=== PATIENT | male | born 1965 | race African-American/Black ===

== ENCOUNTER 2017-12-10 11:50 | Inpatient (IN) | payer OTHER ==
[2017-12-10 13:36] VITALS: BMI 31.4
--- NOTE | 2017-12-10 14:55 | HP ---
CIWA Score - CIWA Score Headache: 2-Mild Admission ROS BHS - HPI Chief Complaint: i need help to stop drinking alcohol,cocaine,marijuana Allergies/Adverse Reactions: Allergies Allergy/AdvReac Type Severity Reaction Status Date / Time Fish Containing Products Allergy Severe Itching Verified 12/10/17 14:45 History of Present Illness: this 52 years old black male with alcohol,cocaine,marijuana dependence,seeking help to stop,ambulation with walker, last treatment 2015 [facility] sine 1996 htn arthritis left knee callus both feet insomnia longest period of sobriety 5 years Exam Limitations: No Limitations - Ebola screening Have you traveled outside of the country in the last 21 days: No Have you had contact with anyone from an Ebola affected area: No Have you been sick,other than usual withdrawal symptoms: No - Review of Systems Constitutional: Weakness, Unintentional Wgt. Loss, Unexplained wgt Loss EENT: reports: Nose Congestion Respiratory: reports: No Symptoms reported Cardiac: reports: No Symptoms Reported GI: reports: No Symptoms Reported : reports: No Symptoms Reported Musculoskeletal: reports: Back Pain Integumentary: reports: Dryness Neuro: reports: No Symptoms reported Endocrine: reports: No Symptoms Reported Hematology: reports: No Symptoms Reported, Other (hiv) Psychiatric: reports: No Sypmtoms Reported, Judgement Intact, Mood/Affect Appropiate, Orientated x3 (insomnia) Patient History - Patient Medical History Hx Anemia: No Hx Asthma: No Hx Chronic Obstructive Pulmonary Disease (COPD): No Hx Cancer: No Hx Cardiac Disorders: No Hx Congestive Heart Failure: No Hx Hypertension: Yes (non ompliance ) Hx Hypercholesterolemia: No Hx Pacemaker: No HX Cerebrovascular Accident: No Hx Seizures: No Hx Dementia: No Hx Diabetes: No Hx Gastrointestinal Disorders: No Hx Liver Disease: No Hx Genitourinary Disorders: No Hx Sexually Transmitted Disorders: No Hx Renal Disease (ESRD): No Hx Thyroid Disease: No Hx Human Immunodeficiency Virus (HIV): Yes (since 1996) Hx Hepatitis C: No Hx Depression: No Hx Suicide Attempt: No Hx Bipolar Disorder: No Hx Schizophrenia: No Other Medical History: insomnia,no suicidal,no homicidal,ambulation with walker, arthritis of lt kn - Patient Surgical History Past Surgical History: No - PPD History Documented Results: Negative w/o proof Implanted On Prior [facility] Admission?: No PPD to be Administered?: Yes - Smoking Cessation Smoking history: Never smoked - Substance & Tx. History Hx Alcohol Use: Yes Hx Substance Use: Yes Substance Use Type: Alcohol, Cocaine, Marijuana Hx Substance Use Treatment: Yes ([facility] in 2016) - Substances Abused Alcohol Route: Oral Frequency: 1-2 times per week Amount used: 1 pint wine Age of first use: 13 Date of Last Use: 12/08/17 Cocaine Route: Smoking Frequency: Daily Amount used: $30 Age of first use: 13 Date of Last Use: 12/08/17 Marijuana/Hashish Route: Smoking Frequency: Daily Amount used: $10 Age of first use: 13 Date of Last Use: 12/08/17 Family Disease History - Family Disease History Family History: Denies Admission Physical Exam [facility] - Vital Signs Vital Signs: Vital Signs - 24 hr 12/10/17 13:35 Temperature 98.9 F Pulse Rate 76 Respiratory 18 Rate Blood Pressure 154/91 - Physical General Appearance: Yes: Within Normal Limits HEENTM: Yes: Within Normal Limits, Normal ENT Inspection, Pharynx Normal Respiratory: Yes: Lungs Clear, Normal Breath Sounds, No Respiratory Distress Neck: Yes: Within Normal Limits Breast: Yes: Within Normal Limits Cardiology: Yes: Within Normal Limits, Regular Rhythm, Regular Rate, S1, S2 Abdominal: Yes: Within Normal Limits, Normal Bowel Sounds, Non Tender, Flat, Soft Genitourinary: Yes: Within Normal Limits Back: Yes: Within Normal Limits Musculoskeletal: Yes: Muscle Pain, Other (arthritis left knee and both feet) Extremities: Yes: Other (arhtrittis left knee,both feet ambulation with walker) Neurological: Yes: family engagement specialist II-XII NML intact, Fully Oriented, Alert, Motor Strength 5/5 Integumentary: Yes: Within Normal Limits Lymphatic: Yes: Within Normal Limits - Diagnostic (1) Alcohol dependence Current Visit: Yes Status: Acute (2) Cocaine dependence Current Visit: Yes Status: Acute (3) Cannabis dependence Current Visit: Yes Status: Acute (4) HIV (human immunodeficiency virus infection) Current Visit: Yes Status: Acute (5) Walker as ambulation aid Current Visit: Yes Status: Acute (6) Weight loss Current Visit: Yes Status: Acute (7) Arthritis Current Visit: Yes Status: Acute (8) Insomnia Current Visit: Yes Status: Acute (9) Hypertension Current Visit: Yes Status: Acute Cleared for Admission S - Detox or Rehab Claeared for Rehab Admission: Yes [facility] Breath Alcohol Content Breath Alcohol Content: 0 Urine Drug Screen - Results Drug Screen Negative: No Urine Drug Screen Results: NELSON-Cocaine
[2017-12-10] MEDS ORDERED: MAG HYDROX/AL HYDROX/SIMETH 30 ML UNIT-DOSE CUP PO PRN (15:15)
[2017-12-10] MEDS ORDERED: LOPERAMIDE HCL 2 MG CAPSULE PO PRN (15:15)
[2017-12-10] MEDS ORDERED: MAGNESIUM HYDROX 2400MG/30ML ORAL SUSPENSION 30 ML CUP PO PRN (15:15)
[2017-12-10] MEDS ORDERED: MENTHOL/PHENOL 1 EACH UD MM PRN (15:15)
[2017-12-10] MEDS ORDERED: ACETAMINOPHEN 325 MG TABLET (FP) PO PRN (15:15)
[2017-12-10] MEDS ORDERED: P-EPHED 60MG/TRIPROLIDI 2.5MG TABLET PO PRN (15:15)
[2017-12-10] MEDS ORDERED: guaiFENesin/D-METHORPHAN HB 10 ML UNIT-DOSE CUPS PO PRN (15:15)
[2017-12-10] MEDS ORDERED: MAGNESIUM CITRATE 300 ML BOTTLE PO PRN (15:15)
[2017-12-10 21:32] LABS: URINE APPEARANCE TURBID; URINE BILIRUBIN NEGATIVE (NEGATIVE); URINE BLOOD NEGATIVE (NEGATIVE); URINE COLOR AMBER; URINE GLUCOSE (UA) NEGATIVE (NEGATIVE); URINE KETONE NEGATIVE (NEGATIVE); URINE LEUK ESTERASE NEGATIVE (NEGATIVE); URINE NITRITE NEGATIVE (NEGATIVE); URINE PROTEIN NEGATIVE (NEGATIVE); URINE UROBILINOGEN NEGATIVE mg/dL (0.2-1.0)
[2017-12-10] MEDS: hydrOXYzine PAMOATE 50 MG CAPSULE (FP) PO PRN (21:43)
[2017-12-10] MEDS: THIAMINE HCL 100 MG TABLET (FP) PO SCH (21:43)
[2017-12-11] MEDS: DARUNAVIR ETHANOLATE 800 MG TAB PO SCH (07:25)
[2017-12-11] MEDS: RITONAVIR 100 MG TABLET PO SCH (07:26)
[2017-12-11] MEDS: EMTRICITABINE 200MG/TENOFOVIR 300MG PO SCH (07:26)
[2017-12-11] MEDS ORDERED: EMTRICITABINE 200MG/TENOFOVIR 300MG PO SCH (10:00)
[2017-12-11 10:04] LABS: HEMOGLOBIN 13.5 GM/dL (11.7-16.9); MCH 30.1 pg (25.7-33.7); MEAN CELL VOLUME 91.1 fl (80-96); MEAN PLT VOLUME 9.4 fl (7.5-11.1); PLATELET COUNT 194 K/MM3 (134-434); RDW 14.1 % (11.9-15.9); WHITE BLOOD COUNT 5.5 K/mm3 (4.0-10.0)
[2017-12-11 10:11] LABS: ALBUMIN 3.6 g/dl (3.4-5.0); ANION GAP 7 (8-16); BLOOD UREA NITROGEN 14 mg/dL (7-18); CALCIUM 8.6 mg/dL (8.5-10.1); CHLORIDE 107 mmol/L (98-107); CO2 25 mmol/L (21-32); GLUCOSE,RANDOM 94 mg/dL (74-106); POTASSIUM 3.8 mmol/L (3.5-5.1); SGOT/AST 18 U/L (15-37); SGPT/ALT 25 U/L (12-78); SODIUM 139 mmol/L (136-145)
[2017-12-11 10:14] LABS: ALK PHOS 90 U/L (45-117); BILIRUBIN,TOTAL 0.4 mg/dL (0.2-1.0); CREATININE 0.8 mg/dL (0.7-1.3); TOT PROT 7.6 g/dl (6.4-8.2)
--- NOTE | 2017-12-11 10:29 | EKG ---
Test Reason : Blood Pressure : / mmHG Vent. Rate : 079 BPM Atrial Rate : 079 BPM P-R Int : 128 ms QRS Dur : 082 ms QT Int : 358 ms P-R-T Axes : 066 058 073 degrees QTc Int : 410 ms NORMAL SINUS RHYTHM WITH SINUS ARRHYTHMIA NORMAL ECG NO PREVIOUS ECGS AVAILABLE Confirmed by EMANUEL WEBB MD ([id number]) on 12/11/2017 10:29:36 AM Referred By: Confirmed By:EMANUEL WEBB MD
[2017-12-11] MEDS: PRENATAL VITAMINS W/ FOLIC ACID TABLET (FP) PO SCH (10:50)
--- NOTE | 2017-12-11 11:37 | HP ---
Psychiatrist Admission - Data Date of interview: 12/11/17 Admission source: [facility] Identifying data: This is the first 5n inpatient rehabilitation admission for this 52 year old single AA male unemployed and on PA, residing in the [facility]. Medical History: HIV, HTN, Arthritis to Lt. Knee and Callus to both feet, Psychiatric History: Patient reports one psychiatric hospitalization in 2015 to [facility] for 8 days, reports he walked in himself, was depressed and unable to sleep, states was discharged with Trazodone and Seroquel , he continued his treatment at [facility] in [facility] [place] for 3-4 months and then stopped, he currently c/o insomnia and requested to restart Seroquel. Physical/Sexual Abuse/Trauma History: Denies history of abuse. Vital Signs: Vital Signs - 24 hr 12/10/17 12/10/17 12/11/17 13:35 17:30 01:12 Temperature 98.9 F 98.4 F Pulse Rate 76 78 Respiratory 18 18 18 Rate Blood Pressure 154/91 130/84 12/11/17 06:56 Temperature 98.6 F Pulse Rate 73 Respiratory 18 Rate Blood Pressure 142/95 Allergies/Adverse Reactions: Allergies Allergy/AdvReac Type Severity Reaction Status Date / Time Fish Containing Products Allergy Severe Itching Verified 12/10/17 14:45 Date of last physical exam: 12/11/17 Concur with the findings of this exam: Yes - Substance Abuse/Tx History Hx Alcohol Use: Yes (beer daily 2-3 cans a day) Hx Substance Use: Yes Substance Use Type: Cocaine ($40 daily ) Hx Substance Use Treatment: Yes ([facility], [facility], [facility]) Mental Status Exam - Mental Status Exam Alert and Oriented to: Time, Place, Person Cognitive Function: Good Patient Appearance: Well Groomed Mood: Sad Affect: Appropriate, Mood Congruent Patient Behavior: Appropriate, Cooperative Speech Pattern: Clear, Appropriate Voice Loudness: Normal Thought Process: Intact, Goal Oriented Thought Disorder: Not Present Hallucinations: Denies Suicidal Ideation: Denies Homicidal Ideation: Denies Insight/Judgement: Fair Sleep: Poorly, Difficulty falling asleep Appetite: Fair Muscle strength/Tone: Normal Gait/Station: Normal Psychiatric Findings - Problem List ([place] 1, 2,3) (1) Alcohol-induced sleep disorder Current Visit: Yes Status: Acute (2) Alcohol dependence Current Visit: Yes Status: Acute (3) Cocaine dependence Current Visit: Yes Status: Acute - Initial Treatment Plan Initial Treatment Plan: will restart Trazodone 50 mg po hs, will monitor progress.
[2017-12-11] MEDS: THIAMINE HCL 100 MG TABLET (FP) PO SCH (21:53)
[2017-12-11] MEDS: hydrOXYzine PAMOATE 50 MG CAPSULE (FP) PO PRN (21:54)
[2017-12-12] MEDS: IBUPROFEN 400 MG TABLET (FP) PO PRN ×2 (06:41→21:49)
[2017-12-12] MEDS: EMTRICITABINE 200MG/TENOFOVIR 300MG PO SCH (07:33)
[2017-12-12] MEDS: RITONAVIR 100 MG TABLET PO SCH (07:33)
[2017-12-12] MEDS: DARUNAVIR ETHANOLATE 800 MG TAB PO SCH (07:33)
[2017-12-12] MEDS: PRENATAL VITAMINS W/ FOLIC ACID TABLET (FP) PO SCH (10:46)
[2017-12-12] MEDS: THIAMINE HCL 100 MG TABLET (FP) PO SCH (21:48)
[2017-12-12] MEDS: hydrOXYzine PAMOATE 50 MG CAPSULE (FP) PO PRN (21:49)
[2017-12-13] MEDS: IBUPROFEN 400 MG TABLET (FP) PO PRN (06:54)
[2017-12-13] MEDS: EMTRICITABINE 200MG/TENOFOVIR 300MG PO SCH (07:04)
[2017-12-13] MEDS: RITONAVIR 100 MG TABLET PO SCH (07:04)
[2017-12-13] MEDS: DARUNAVIR ETHANOLATE 800 MG TAB PO SCH (07:04)
[2017-12-13] MEDS: PRENATAL VITAMINS W/ FOLIC ACID TABLET (FP) PO SCH (11:01)
[2017-12-13] MEDS: THIAMINE HCL 100 MG TABLET (FP) PO SCH (21:34)
[2017-12-13] MEDS: hydrOXYzine PAMOATE 50 MG CAPSULE (FP) PO PRN (21:34)
[2017-12-14] MEDS: IBUPROFEN 400 MG TABLET (FP) PO PRN (06:24)
[2017-12-14] MEDS: EMTRICITABINE 200MG/TENOFOVIR 300MG PO SCH (07:05)
[2017-12-14] MEDS: RITONAVIR 100 MG TABLET PO SCH (07:05)
[2017-12-14] MEDS: DARUNAVIR ETHANOLATE 800 MG TAB PO SCH (07:05)
[2017-12-14] MEDS: PRENATAL VITAMINS W/ FOLIC ACID TABLET (FP) PO SCH (10:51)
--- NOTE | 2017-12-14 16:19 | PN ---
S Progress Note Note: Vital Signs Temperature 98.4 F 12/14/17 07:15 Pulse Rate 64 12/14/17 07:15 Respiratory Rate 18 12/14/17 07:15 Blood Pressure 128/86 12/14/17 07:15 O2 Sat by Pulse Oximetry (%) Patient refuse vitamins. vitamins d/c continue to monitor
[2017-12-14] MEDS: THIAMINE HCL 100 MG TABLET (FP) PO SCH (21:58)
[2017-12-15] MEDS: IBUPROFEN 400 MG TABLET (FP) PO PRN ×2 (06:14→21:43)
[2017-12-15] MEDS: DARUNAVIR ETHANOLATE 800 MG TAB PO SCH (07:39)
[2017-12-15] MEDS: RITONAVIR 100 MG TABLET PO SCH (07:39)
[2017-12-15] MEDS: EMTRICITABINE 200MG/TENOFOVIR 300MG PO SCH (07:39)
[2017-12-15] MEDS: THIAMINE HCL 100 MG TABLET (FP) PO SCH (21:42)
[2017-12-15] MEDS: hydrOXYzine PAMOATE 50 MG CAPSULE (FP) PO PRN (21:42)
[2017-12-16] MEDS: RITONAVIR 100 MG TABLET PO SCH (07:34)
[2017-12-16] MEDS: DARUNAVIR ETHANOLATE 800 MG TAB PO SCH (07:34)
[2017-12-16] MEDS: EMTRICITABINE 200MG/TENOFOVIR 300MG PO SCH (07:34)
[2017-12-16] MEDS: THIAMINE HCL 100 MG TABLET (FP) PO SCH (21:34)
[2017-12-17] MEDS: IBUPROFEN 400 MG TABLET (FP) PO PRN ×2 (06:18→21:43)
[2017-12-17] MEDS: RITONAVIR 100 MG TABLET PO SCH (07:24)
[2017-12-17] MEDS: DARUNAVIR ETHANOLATE 800 MG TAB PO SCH (07:24)
[2017-12-17] MEDS: EMTRICITABINE 200MG/TENOFOVIR 300MG PO SCH (07:24)
[2017-12-17] MEDS: THIAMINE HCL 100 MG TABLET (FP) PO SCH (21:41)
[2017-12-17] MEDS: hydrOXYzine PAMOATE 50 MG CAPSULE (FP) PO PRN (21:43)
[2017-12-18] MEDS: RITONAVIR 100 MG TABLET PO SCH (07:35)
[2017-12-18] MEDS: DARUNAVIR ETHANOLATE 800 MG TAB PO SCH (07:35)
[2017-12-18] MEDS: EMTRICITABINE 200MG/TENOFOVIR 300MG PO SCH (07:35)
[2017-12-18] MEDS: THIAMINE HCL 100 MG TABLET (FP) PO SCH (21:42)
[2017-12-19] MEDS: IBUPROFEN 400 MG TABLET (FP) PO PRN ×2 (06:17→21:44)
[2017-12-19] MEDS: EMTRICITABINE 200MG/TENOFOVIR 300MG PO SCH (07:01)
[2017-12-19] MEDS: DARUNAVIR ETHANOLATE 800 MG TAB PO SCH (07:01)
[2017-12-19] MEDS: RITONAVIR 100 MG TABLET PO SCH (07:01)
[2017-12-19] MEDS: THIAMINE HCL 100 MG TABLET (FP) PO SCH (21:43)
[2017-12-20] MEDS: DARUNAVIR ETHANOLATE 800 MG TAB PO SCH (07:30)
[2017-12-20] MEDS: IBUPROFEN 400 MG TABLET (FP) PO PRN (07:30)
[2017-12-20] MEDS: RITONAVIR 100 MG TABLET PO SCH (07:30)
[2017-12-20] MEDS: EMTRICITABINE 200MG/TENOFOVIR 300MG PO SCH (07:32)
[2017-12-20] MEDS: THIAMINE HCL 100 MG TABLET (FP) PO SCH (21:47)
[2017-12-21] MEDS: IBUPROFEN 400 MG TABLET (FP) PO PRN (06:17)
[2017-12-21] MEDS: DARUNAVIR ETHANOLATE 800 MG TAB PO SCH (07:21)
[2017-12-21] MEDS: RITONAVIR 100 MG TABLET PO SCH (07:21)
[2017-12-21] MEDS: EMTRICITABINE 200MG/TENOFOVIR 300MG PO SCH (07:22)
[2017-12-21] MEDS: THIAMINE HCL 100 MG TABLET (FP) PO SCH (21:33)
[2017-12-22] MEDS: IBUPROFEN 400 MG TABLET (FP) PO PRN ×2 (06:23→23:03)
[2017-12-22 07:06] VITALS: TEMP 98.3
[2017-12-22] MEDS: DARUNAVIR ETHANOLATE 800 MG TAB PO SCH (07:31)
[2017-12-22] MEDS: EMTRICITABINE 200MG/TENOFOVIR 300MG PO SCH (07:31)
[2017-12-22] MEDS: RITONAVIR 100 MG TABLET PO SCH (07:32)
[2017-12-22] MEDS: THIAMINE HCL 100 MG TABLET (FP) PO SCH (21:37)
[2017-12-23] MEDS: RITONAVIR 100 MG TABLET PO SCH (07:30)
[2017-12-23] MEDS: DARUNAVIR ETHANOLATE 800 MG TAB PO SCH (07:30)
[2017-12-23] MEDS: EMTRICITABINE 200MG/TENOFOVIR 300MG PO SCH (07:30)
--- NOTE | 2017-12-23 11:05 | PN ---
Psychiatric Progress Note Vital Signs: Vital Signs Period Temp Pulse Resp BP Sys/Orellana Pulse Ox Last 24 Hr 98.3 F 70 16-18 122/84 Date of Session: 12/23/17 Chief Complaint:: Discharge Note HPI: Patient addressing Alcohol, Cocaine and Cannabis Dependence comorbid with Alcohol-Induced Sleep Disorder ROS: HIV, HTN, Arthritis left knee, Callus both feet Current Medications: Active Medications Generic Name Dose Route Start Last Admin Trade Name Freq PRN Reason Stop Dose Admin Acetaminophen 650 mg 12/10/17 15:15 Tylenol - PO Q4H PRN FEVER Al Hydroxide/Mg Hydroxide 30 ml 12/10/17 15:15 Mylanta Oral Suspension - PO Q6H PRN DYSPEPSIA Darunavir 800 mg 12/11/17 08:00 12/23/17 07:30 Prezista - PO 800 mg DAILY@0800 [facility] Administration Emtricitabine/Tenofovir 1 tab 12/11/17 08:00 12/23/17 07:30 Truvada PO 1 tab DAILY@0800 [facility] Administration Eucalyptus/Menthol/Phenol/Sorbitol 1 each 12/10/17 15:15 Cepastat Lozenge - MM Q4H PRN SORE THROAT Guaifenesin 10 ml 12/10/17 15:15 Robitussin Dm - PO Q6H PRN COUGH Hydroxyzine Pamoate 50 mg 12/10/17 15:15 12/17/17 21:43 Vistaril - PO 50 mg Q4H PRN Administration AGITATION Ibuprofen 800 mg 12/10/17 15:17 12/22/17 23:03 Motrin - PO 800 mg TID PRN Administration PAIN Loperamide HCl 4 mg 12/10/17 15:15 Imodium - PO Q6H PRN DIARRHEA Magnesium Citrate 300 ml 12/10/17 15:15 Citroma - PO Q48H PRN CONSTIPATION Magnesium Hydroxide 30 ml 12/10/17 15:15 Milk Of Magnesia - PO DAILY PRN CONSTIPATION Pseudoephedrine/Triprolidine 1 combo 12/10/17 15:15 Actifed - PO TID PRN NASAL CONGESTION Ritonavir 100 mg 12/11/17 08:00 12/23/17 07:30 Norvir - PO 100 mg DAILY@0800 [facility] Administration Thiamine HCl 100 mg 12/10/17 22:00 12/22/17 21:37 Vitamin B1 - PO Not Given HS MAURILIO Current Side Effect: No Lab tests ordered: Yes Lab tests reviewed: Yes Provider note:: Patient will complete this program on 12/24/17. He has met his treatment goals and plans to get addiction services at [facility] where he receives medical services. Told senior copywriter that from his participation in this program, he has learned that staying busy is prevention for relapse. He is stable for discharge on 12/24/17 Total face to face time:: 35 Mental Status Exam - Mental Status Exam Alert and Oriented to: Time, Place, Person Cognitive Function: Fair Patient Appearance: Well Groomed Mood: Hopeful, Euthymic Affect: Appropriate Patient Behavior: Cooperative Speech Pattern: Clear Voice Loudness: Normal Thought Process: Intact, Goal Oriented Thought Disorder: Not Present Hallucinations: Denies Suicidal Ideation: Denies Homicidal Ideation: Denies Insight/Judgement: Fair Sleep: Fair Appetite: Good Muscle strength/Tone: Normal Gait/Station: Normal Psychiatric Treatment Plan - Problem List (1) Alcohol dependence Current Visit: Yes (2) Cocaine dependence Current Visit: Yes (3) Cannabis dependence Current Visit: Yes (4) Alcohol-induced sleep disorder Current Visit: Yes (5) Arthritis Current Visit: Yes (6) HIV (human immunodeficiency virus infection) Current Visit: Yes (7) Hypertension Current Visit: Yes Initial treatment plan: Patient will be discharged tomorrow and referred to [facility] for outpatient treatment
[2017-12-23] MEDS: IBUPROFEN 400 MG TABLET (FP) PO PRN (14:19)
[2017-12-23] MEDS: hydrOXYzine PAMOATE 50 MG CAPSULE (FP) PO PRN (21:40)
[2017-12-23] MEDS: THIAMINE HCL 100 MG TABLET (FP) PO SCH (21:40)
[2017-12-24] MEDS: IBUPROFEN 400 MG TABLET (FP) PO PRN (06:11)
[2017-12-24 07:15] VITALS: BP 118/80; PULSE 58
[2017-12-24] MEDS: DARUNAVIR ETHANOLATE 800 MG TAB PO SCH (07:25)
[2017-12-24] MEDS: RITONAVIR 100 MG TABLET PO SCH (07:25)
[2017-12-24] MEDS: EMTRICITABINE 200MG/TENOFOVIR 300MG PO SCH (07:26)
== END 2017-12-24 09:10 | disposition home or self-care (01) | DRG 772 ==
LOC: YASAS 11:50 → Y5N 15:38
PROVIDERS: ADMIT Psychiatry & Neurology Psychiatry; ATTEND Psychiatry & Neurology Psychiatry
PROC: HZ42ZZZ Group Counseling for Substance Abuse Treatment, Cognitive-Behavioral (ICD-10-PCS; principal; 2017-12-10)
DX: F10.20 Alcohol dependence, uncomplicated (principal); F14.20 Cocaine dependence, uncomplicated; F12.20 Cannabis dependence, uncomplicated; F10.282 Alcohol dependence with alcohol-induced sleep disorder; I10 Essential (primary) hypertension; Z91.14 Patient's other noncompliance with medication regimen; M13.862 Other specified arthritis, left knee; M13.861 Other specified arthritis, right knee; Z21 Asymptomatic human immunodeficiency virus [HIV] infection status; L84 Corns and callosities; G47.00 Insomnia, unspecified; R63.4 Abnormal weight loss; Z68.31 Body mass index [BMI] 31.0-31.9, adult; Z99.89 Dependence on other enabling machines and devices
CPT/HCPCS: 36415; 71046-TC-FY; 80053; 81003; 85027; 86593; 93005; 93010